=== PATIENT | female | born 1985 | race Caucasian/White ===

== ENCOUNTER 2017-04-24 14:46 | Emergency (ER) | payer MEDICAID ==
[~2017-04-24] VITALS: Ht 160 cm; Wt 73.6 kg
[2017-04-24 15:11] VITALS: BP 113/55
--- NOTE | 2017-04-24 15:57 | NUR ---
AMBULATED TO ER BED 8
[2017-04-24] MEDS ORDERED: KETOROLAC 60 MG/2 ML VIAL IM ONE (16:00)
--- NOTE | 2017-04-24 16:10 | NUR ---
32/F PRESENT TO ER C/O EPIGASTRIC BURNING PAIN RADIATING STRAIGHT BACK X 1 WK-----NAUSEA SOB LIGHTHEADED----DECREASED APPETITE AND THROAT DISCOMFORT. PAIN 6/10 SHARP NON-RADIATING. AAOx4, PERRLA, BREATHING EVEN AND UNLABORED. ERMD NOTIFIED OF PATIENT STATUS.
[2017-04-24] MEDS ORDERED: LORazepam 2 MG/ML VIAL IM ONE (16:15)
--- NOTE | 2017-04-24 16:15 | NUR ---
Patient being evaluated by physician at bedside.
[2017-04-24 17:05] VITALS: BP 121/67
--- NOTE | 2017-04-24 17:05 | NUR ---
Patient discharged with v/s stable. Written and verbal after care instructions given and explained. Patient alert, oriented and verbalized understanding of instructions. Ambulatory with steady gait. All questions addressed prior to discharge. ID band removed. Patient advised to follow up with PMD. Rx of TRAMADOL 50MG TABLET given. Patient educated on indication of medication including possible reaction and side effects. Opportunity to ask questions provided and answered.
== END 2017-04-24 17:05 | disposition home or self-care (01) ==
LOC: MED 14:46
DX: R07.89 Other chest pain (principal)
CPT/HCPCS: 71010; 93005; 96372; 99284; J1885; Q0092

== ENCOUNTER 2017-07-03 07:48 | Emergency (ER) | payer SELFPAY ==
[~2017-07-03] VITALS: Ht 157.5 cm; Wt 73.9 kg
[2017-07-03 07:58] VITALS: BP 98/64
[2017-07-03] MEDS ORDERED: ACET-2869 PO (08:02)
--- NOTE | 2017-07-03 08:05 | NUR ---
32/F BIB MOM C/O NAUSEA AND DIZZY THIS AM. HOT FLASHES AT NIGHT. HX GALLSTONES. AX DENIES. RX NORCO AND IBUPROFEN. DENIES V/D; SKIN IS PINK/WARM/DRY; AAOX4 WITH EVEN AND STEADY GAIT; LUNGS CLEAR BL; HR EVEN AND REGULAR; PT DENIES ANY FEVER, CP, SOB, OR COUGH AT THIS TIME; PATIENT STATES PAIN OF 0/10 AT THIS TIME; VSS; PATIENT POSITIONED FOR COMFORT; HOB ELEVATED; BEDRAILS UP X2; BED DOWN. ER MD MADE AWARE OF PT STATUS.
--- NOTE | 2017-07-03 08:05 | NUR ---
PT AMB TO RESTROOM. UCUP GIVEN.
[2017-07-03] MEDS ORDERED: METOCLOPRAMIDE 10 MG/2 ML INJ VIAL IVP ONE (08:15)
[2017-07-03] MEDS ORDERED: NACL 0.9% 1,000 ML IV ONE (08:15)
[2017-07-03 09:00] LABS: BASOPHILS # (AUTO) 0.2 K/uL (0.00-0.22); BASOPHILS % (AUTO) 2.3 % (0.0-2.0); EOSINOPHILS # (AUTO) 0.1 K/uL (0-0.4); EOSINOPHILS % (AUTO) 0.9 % (0.0-4.0); HEMATOCRIT 42.5 % (36-48); HEMOGLOBIN 14.2 g/dL (12.0-16.0); LYMPHOCYTES # (AUTO) 2.4 K/uL (2.5-16.5); LYMPHOCYTES % (AUTO) 24.4 % (20.5-51.1); MEAN CORPUSCULAR HEMOGLOBIN 30 pg (27-31); MEAN CORPUSCULAR HGB CONC 33 g/dL (33-37); MEAN CORPUSCULAR VOLUME 90 fL (80-94); MONOCYTES # (AUTO) 0.6 K/uL (0.8-1.0); MONOCYTES % (AUTO) 6.3 % (1.7-9.3); NEUTROPHILS # (AUTO) 6.4 K/uL (1.8-7.7); NEUTROPHILS % (AUTO) 66.1 % (42.2-75.2); PLATELET COUNT (AUTO) 196 K/uL (140-450); RED BLOOD CELL COUNT(AUTO) 4.72 MIL/uL (4.20-5.40); RED CELL DISTRIBUTION WIDTH 11.7 % (11.6-13.7); WHITE BLOOD COUNT (AUTO) 9.7 K/uL (4.8-10.8)
[2017-07-03 09:14] LABS: ANION GAP 11.5 (8-16); CARBON DIOXIDE 29.1 mmol/L (21-32); CREATININE 0.8 mg/dL (0.6-1.3); POTASSIUM 3.6 mmol/L (3.5-5.1)
[2017-07-03 09:19] LABS: APPEARANCE,URINE HAZY (CLEAR); BILIRUBIN,URINE NEGATIVE (NEGATIVE); BLOOD, URINE 1+ (NEGATIVE); COLOR,URINE YELLOW (YELLOW); LEUKOCYTE ESTERASE ,URINE NEGATIVE (NEGATIVE); NITRITE, URINE NEGATIVE (NEGATIVE); PH,URINE 5.5 (5.0-9.0); UGLUCOSE NEGATIVE (NEGATIVE)
[2017-07-03 09:21] LABS: ALBUMIN 3.6 g/dL (3.4-5.0); TOTAL BILIRUBIN 0.4 mg/dL (0.0-1.0)
[2017-07-03 09:37] LABS: RBC,URINE 0-5 (RARE) /HPF (0-5); WBC,URINE 0-5 (RARE) /HPF (0-5)
[2017-07-03 09:39] LABS: URINE AMORPHOUS URATE 1+ /HPF (None Seen)
[2017-07-03 09:45] VITALS: BP 101/66
== END 2017-07-03 09:45 | disposition home or self-care (01) ==
LOC: MED 07:48
DX: R11.0 Nausea (principal); R42 Dizziness and giddiness; R51 Headache; Z79.899 Other long term (current) drug therapy
CPT/HCPCS: 36415; 80053; 81001; 81025; 85025; 96361; 96374; 99284; J2765; J7030

== ENCOUNTER 2017-08-16 22:22 | Emergency (ER) | payer SELFPAY ==
[~2017-08-16] VITALS: Ht 157.5 cm; Wt 68.0 kg
[~2017-08-16 22:22] MED LIST: ACET-2869 PO
[2017-08-16 22:37] VITALS: BP 105/67
[2017-08-16 22:49] VITALS: BP 105/67
--- NOTE | 2017-08-16 22:49 | NUR ---
TO LOBBY, AMB,V/S STABLE, A/W FOR BED, NATHANIEL NOTED
--- NOTE | 2017-08-17 02:45 | NUR ---
PATIENT LEFT WITHOUT BEING SEEN BY DR. Lanza. NO FURTHER CARE PROVIDED FOR PATIENT.
== END 2017-08-17 02:45 | disposition left against medical advice (07) ==
LOC: MED 22:22
DX: R10.13 Epigastric pain (principal); Z53.21 Procedure and treatment not carried out due to patient leaving prior to being seen by health care provider

== ENCOUNTER 2017-10-15 10:34 | Emergency (ER) | payer MEDICAID ==
[~2017-10-15] VITALS: Ht 160 cm; Wt 72.6 kg
[2017-10-15 10:36] VITALS: BP 145/102
[2017-10-15] MEDS ORDERED: NACL 0.9% 1,000 ML IV SCH (10:36)
[2017-10-15] MEDS ORDERED: KETOROLAC 30 MG/ML VIAL IVP ONE (10:40)
[2017-10-15] MEDS ORDERED: GLYCOPYRROLATE 0.2 MG/ML VIAL IV ONE (10:40)
[2017-10-15] MEDS ORDERED: HYDROmorphone PFS 2 MG/ML SYR IVP ONE (10:40)
[2017-10-15] MEDS ORDERED: ONDANSETRON 4 MG/2 ML VIAL IVP ONE (10:40)
[2017-10-15 10:56] LABS: BASOPHILS # (AUTO) 0.2 K/uL (0.00-0.22); BASOPHILS % (AUTO) 3.1 % (0.0-2.0); EOSINOPHILS # (AUTO) 0.1 K/uL (0-0.4); EOSINOPHILS % (AUTO) 0.7 % (0.0-4.0); HEMATOCRIT 43.1 % (36-48); HEMOGLOBIN 14.4 g/dL (12.0-16.0); LYMPHOCYTES # (AUTO) 2.1 K/uL (2.5-16.5); LYMPHOCYTES % (AUTO) 26.4 % (20.5-51.1); MEAN CORPUSCULAR HEMOGLOBIN 30 pg (27-31); MEAN CORPUSCULAR HGB CONC 33 g/dL (33-37); MEAN CORPUSCULAR VOLUME 89 fL (80-94); MONOCYTES # (AUTO) 0.5 K/uL (0.8-1.0); MONOCYTES % (AUTO) 6.8 % (1.7-9.3); PLATELET COUNT (AUTO) 207 K/uL (140-450); RED BLOOD CELL COUNT(AUTO) 4.87 MIL/uL (4.20-5.40); RED CELL DISTRIBUTION WIDTH 11.7 % (11.6-13.7); WHITE BLOOD COUNT (AUTO) 7.9 K/uL (4.8-10.8)
[2017-10-15 10:57] LABS: APPEARANCE,URINE CLEAR (CLEAR); BILIRUBIN,URINE NEGATIVE (NEGATIVE); BLOOD, URINE NEGATIVE (NEGATIVE); COLOR,URINE YELLOW (YELLOW); LEUKOCYTE ESTERASE ,URINE TRACE (NEGATIVE); NITRITE, URINE NEGATIVE (NEGATIVE); PH,URINE 6.5 (5.0-9.0); UGLUCOSE NEGATIVE (NEGATIVE)
[2017-10-15 11:06] LABS: ANION GAP 10.6 (8-16); CARBON DIOXIDE 28.9 mmol/L (21-32); CREATININE 0.7 mg/dL (0.6-1.3); POTASSIUM 3.5 mmol/L (3.5-5.1)
[2017-10-15 11:12] LABS: ALBUMIN 3.7 g/dL (3.4-5.0); TOTAL BILIRUBIN 0.6 mg/dL (0.0-1.0)
[2017-10-15 11:14] LABS: RBC,URINE 0-5 (RARE) /HPF (0-5)
[2017-10-15 12:22] VITALS: BP 99/67
== END 2017-10-15 12:22 | disposition home or self-care (01) ==
LOC: MED 10:34
DX: K80.20 Calculus of gallbladder without cholecystitis without obstruction (principal); Z79.899 Other long term (current) drug therapy
CPT/HCPCS: 36415; 76705; 80053; 81001; 81025; 82150; 83690; 84703; 85025; 87086; 96361; 96374; 96375; 99285; J1170; J1885; J2405; J3490; J7030; Q0092

== ENCOUNTER 2018-02-20 15:23 | Inpatient (IN) | payer MEDICAID ==
[~2018-02-20] VITALS: Ht 157.5 cm; Wt 77.6 kg
[2018-02-20 15:43] VITALS: BP 130/75
--- NOTE | 2018-02-20 15:50 | NUR ---
PT AMBULATES TO BED 12
[2018-02-20] MEDS ORDERED: KETOROLAC 30 MG/ML VIAL IVP ONE (15:55)
[2018-02-20] MEDS ORDERED: ONDANSETRON 4 MG/2 ML VIAL IVP ONE (15:55)
[2018-02-20] MEDS ORDERED: HYDROmorphone PFS 2 MG/ML SYR IVP ONE (15:55)
--- NOTE | 2018-02-20 15:55 | NUR ---
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 STATES SHE HAS HX OF GALL BLADDER PROBLEMS BUT INSURANCE WON'T COVER REMOVAL, SKIN IS INTACT, PINK/WARM/DRY; AAOX4, PERRL, WITH EVEN AND STEADY GAIT; LUNGS CLEAR BL, BREATHING UNLABORED; HR EVEN AND REGULAR, BL PERIPHERAL PULSES PRESENT; BS ACTIVE X4, TENDERNESS TO PALPATION, NO HEPATOSPLENOMEGALLY PALPATED, RESONANT TO PERCUSSION; PT DENIES ANY FEVER, CP, SOB, OR COUGH AT THIS TIME; PT STATES 10/10 PAIN AT THIS TIME; VSS; PATIENT POSITIONED FOR COMFORT; HOB ELEVATED; BEDRAILS UP X2; BED DOWN.
--- NOTE | 2018-02-20 15:57 | NUR ---
REPORT GIVEN TO NICKY PATTON
[2018-02-20 16:16] LABS: BASOPHILS % (AUTO) 0.2 % (0.0-2.0); EOSINOPHILS # (AUTO) 0.1 K/uL (0-0.4); HEMATOCRIT 44.6 % (36-48); HEMOGLOBIN 14.6 g/dL (12.0-16.0); LYMPHOCYTES # (AUTO) 2.5 K/uL (2.5-16.5); LYMPHOCYTES % (AUTO) 27.4 % (20.5-51.1); MEAN CORPUSCULAR HEMOGLOBIN 30 pg (27-31); MEAN CORPUSCULAR HGB CONC 33 g/dL (33-37); MEAN CORPUSCULAR VOLUME 90.7 fL (80-94); MONOCYTES # (AUTO) 0.7 K/uL (0.8-1.0); MONOCYTES % (AUTO) 7.3 % (1.7-9.3); NEUTROPHILS # (AUTO) 5.8 K/uL (1.8-7.7); NEUTROPHILS % (AUTO) 64.1 % (42.2-75.2); PLATELET COUNT (AUTO) 234 K/uL (140-450); RED BLOOD CELL COUNT(AUTO) 4.91 MIL/uL (4.20-5.40); RED CELL DISTRIBUTION WIDTH 12.5 % (11.6-13.7); WHITE BLOOD COUNT (AUTO) 9.1 K/uL (4.8-10.8)
--- NOTE | 2018-02-20 16:18 | NUR ---
C/O 05/26 EPIGASTRIC SHARP PAIN WITH NAUSEA---MEDICATED WRITTEN WILL CONTINUE TO OBSERVE FOR NAUSEA AND PAIN CONTROL---- DIET EDUCATED GIVEN TO PT
--- NOTE | 2018-02-20 16:19 | NUR ---
BLOOD COLLECTED AT IV START AND HANDED TO AIRCRAFT DELIVERY CHECKER
[2018-02-20 16:24] LABS: APPEARANCE,URINE CLEAR (CLEAR); BILIRUBIN,URINE NEGATIVE (NEGATIVE); BLOOD, URINE TRACE-I (NEGATIVE); COLOR,URINE YELLOW (YELLOW); LEUKOCYTE ESTERASE ,URINE NEGATIVE (NEGATIVE); NITRITE, URINE NEGATIVE (NEGATIVE); UGLUCOSE NEGATIVE (NEGATIVE)
[2018-02-20 16:27] LABS: CARBON DIOXIDE 30.1 mmol/L (21-32); CREATININE 0.9 mg/dL (0.6-1.3); POTASSIUM 3.1 mmol/L (3.5-5.1)
--- NOTE | 2018-02-20 16:29 | NUR ---
PT ADMITS COMPLETE PAIN RELIEF AT THIS TIME---FAMILY AT BEDSIDE
[2018-02-20 16:34] LABS: ALBUMIN 4.2 g/dL (3.4-5.0); TOTAL BILIRUBIN 0.5 mg/dL (0.0-1.0)
[2018-02-20 16:45] LABS: RBC,URINE 0-5 (RARE) /HPF (0-5); WBC,URINE NONE SEEN /HPF (0-5)
--- NOTE | 2018-02-20 17:00 | NUR ---
ULTRASOUND AT BEDSIDE
[2018-02-20] MEDS ORDERED: NACL 0.9% 1,000 ML IV ONE (17:55)
[2018-02-20] MEDS ORDERED: MORPHINE SULFATE 2 MG/ML SYR IVP PRN (18:25)
[2018-02-20] MEDS ORDERED: ACETAMINOPHEN 325 MG TAB PO PRN (18:25)
[2018-02-20 18:58] LABS: PROTHROMBIN TIME 10.1 secs (10.8-13.4)
[2018-02-20 19:00] VITALS: BP 95/59
--- NOTE | 2018-02-20 19:00 | NUR ---
PT ARRIVED ON UNIT VIA WHEELCHAIR WITH ER NURSE. PT IS A/O X4. AMBULATORY. PT HAS A L AC IV 20G. IV IS PATENT AND INTACT. SKIN IS INTACT. PT HAS NO COMPLAINTS OF PAIN AT THIS TIME. BED LOCKED, LOW POSITION, SIDE RAILS UP. BOARD UPDATED. WILL CONTINUE TO MONITOR PT.
[2018-02-20 19:04] LABS: BARBITURATE, URINE NEG. ng/ml (NEG <=200); BENZODIAZEPINE, URINE NEG. ng/mL (NEG <=200); CANNABINOID, URINE NEG. ng/mL (NEG <=50); COCAINE, URINE NEG. ng/mL (NEG <=300); OPIATE, URINE NEG. ng/mL (NEG <=2000); PHENCYCLIDINE SCREEN,URINE NEG. ng/mL (NEG <=25)
--- NOTE | 2018-02-20 19:04 | NUR ---
Pt transferred to Med/Surg via WHEELCHAIR TO ROOM 111/A, REPORT GIVEN TO DARIO PATTON
[2018-02-20 19:09] LABS: CHOL/HDL RATIO 3.5 (1-4.5); MAGNESIUM 2.2 mg/dL (1.8-2.4); PHOSPHORUS 4.9 mg/dL (2.5-4.9); THYROID STIMULATING HORMONE 0.73 uIU/mL (0.34-3.74)
[2018-02-20] MEDS: POTASSIUM CHLORIDE 10 MEQ TABER PO SCH (20:51)
[2018-02-20] MEDS: NACL 0.9% 1,000 ML IV SCH (20:52)
--- NOTE | 2018-02-20 21:06 | NUR ---
PT RESTING IN BED WITH FAMILY AT BEDSIDE. NO C/O PAIN AT THIS TIME. WILL CONTINUE TO MONITOR PT.
[2018-02-20] MEDS: HYDROcodone/APAP 7.5/325 MG 1 TAB PO PRN (23:09)
--- NOTE | 2018-02-20 23:09 | NUR ---
PT COMPLAINING OF ABDOMINAL PAIN. REQUESTING PAIN MEDICATION. NORCO GIVEN. WILL REEVALUATE FOR EFFECTIVENESS IN ONE HOUR.
--- NOTE | 2018-02-20 23:31 | NUR ---
MD AT BEDSIDE SPEAKING WITH PT ABOUT POSSIBLE ERCP TOMORROW.
[2018-02-20 23:45] VITALS: BP 92/58
--- NOTE | 2018-02-21 00:45 | NUR ---
DR. CARNES SAID OK TO HOLD CONSENT FOR ERCP . HE WILL HAVE BOTH DR. MENDOZA AND DR. JORDAN MADE AWARE ABOUT PT CONCERN EARLY THIS AM.
--- NOTE | 2018-02-21 00:52 | NUR ---
URINE SPECIMEN COLLECTED PER ORDERS.
--- NOTE | 2018-02-21 01:37 | NUR ---
PT SLEEPING IN BED. NO S/SX OF DISTRESS. WILL CONTINUE TO MONITOR.
--- NOTE | 2018-02-21 03:44 | NUR ---
NO CHANGE IN STATUS. PT IN STABLE CONDITION. WILL CONTINUE TO MONITOR.
[2018-02-21] MEDS: NACL 0.9% 1,000 ML IV SCH ×2 (04:21→06:36)
--- NOTE | 2018-02-21 05:30 | NUR ---
PT ASLEEP IN BED. NO SIGNS OF DISTRESS. WILL CONTINUE TO MONITOR.
--- NOTE | 2018-02-21 06:25 | NUR ---
TALKED TO DR. CARNES. HE SAID OK TO HAVE PT SIGN CONSENT FOR ERCP THIS AM. SO TALKED TO PT AGAIN. SHE SIGNED CONSENT . AWARE OF THE PROCEDURE.
[2018-02-21 07:01] LABS: BASOPHILS % (AUTO) 0.2 % (0.0-2.0); EOSINOPHILS # (AUTO) 0.1 K/uL (0-0.4); EOSINOPHILS % (AUTO) 1.4 % (0.0-4.0); HEMATOCRIT 40.2 % (36-48); HEMOGLOBIN 13.5 g/dL (12.0-16.0); LYMPHOCYTES # (AUTO) 2.9 K/uL (2.5-16.5); LYMPHOCYTES % (AUTO) 40.9 % (20.5-51.1); MEAN CORPUSCULAR HEMOGLOBIN 30 pg (27-31); MEAN CORPUSCULAR HGB CONC 34 g/dL (33-37); MEAN CORPUSCULAR VOLUME 90.6 fL (80-94); MONOCYTES # (AUTO) 0.5 K/uL (0.8-1.0); MONOCYTES % (AUTO) 6.8 % (1.7-9.3); NEUTROPHILS # (AUTO) 3.6 K/uL (1.8-7.7); NEUTROPHILS % (AUTO) 50.7 % (42.2-75.2); PLATELET COUNT (AUTO) 210 K/uL (140-450); RED BLOOD CELL COUNT(AUTO) 4.43 MIL/uL (4.20-5.40); RED CELL DISTRIBUTION WIDTH 12.5 % (11.6-13.7); WHITE BLOOD COUNT (AUTO) 7.1 K/uL (4.8-10.8)
--- NOTE | 2018-02-21 07:10 | NUR ---
ENDORSED PT TO DAY SHIFT NURSE FOR CONTINUITY OF CARE. PT IN STABLE CONDITION.
--- NOTE | 2018-02-21 07:15 | NUR ---
DR. MATOS CALLED AND SAD HE IS COMING TO TALK TO THE PT.
[2018-02-21 07:16] LABS: ANION GAP 8.5 (8-16); CARBON DIOXIDE 29.6 mmol/L (21-32); CREATININE 0.8 mg/dL (0.6-1.3); POTASSIUM 4.1 mmol/L (3.5-5.1)
[2018-02-21] MEDS ORDERED: PROPOFOL 200 MG/20 ML VIAL IV ONE (07:25)
--- NOTE | 2018-02-21 07:25 | NUR ---
PATIENT LEFT THE UNIT FOR ERCP
[2018-02-21] MEDS ORDERED: fentaNYL 0.05 MG/ML VIAL ONE (07:27)
[2018-02-21] MEDS ORDERED: MIDAZOLAM 2 MG/2 ML VIAL ONE (07:27)
[2018-02-21] MEDS: LACTATED RINGERS 1,000 ML IV SCH ×2 (07:56→16:16)
[2018-02-21] MEDS ORDERED: ONDANSETRON 4 MG/2 ML VIAL IVP PRN (08:00)
[2018-02-21] MEDS ORDERED: diphenhydrAMINE 50 MG/ML VIAL IVP PRN (08:00)
[2018-02-21] MEDS: MEPERIDINE 25 MG/ML SYR IVP PRN ×3 (08:40→09:00)
[2018-02-21] MEDS ORDERED: MEPERIDINE 25 MG/ML SYR ONE ×3 (08:44→09:04)
[2018-02-21] MEDS: POTASSIUM CHLORIDE 10 MEQ TABER PO SCH ×2 (09:00→20:38)
[2018-02-21 09:25] VITALS: BP 101/67
--- NOTE | 2018-02-21 09:25 | NUR ---
PATIENT BACK IN THE UNIT FROM ERCP. PATIENT AWAKE AND ALERT. NO S/S OF DISTRESS. LR CURRENTLY INFUSING ON THE LEFT AC. BED LOWERED WITH CALL LIGHT WITHIN REACH. WILL CONTINUE TO MONITOR TEMP 97.9 BP: 101/67 HR:75 O2:98% ON ROOM AIR
[2018-02-21] MEDS: MORPHINE SULFATE 2 MG/ML SYR IVP PRN (11:13)
[2018-02-21] MEDS: ONDANSETRON 4 MG/2 ML VIAL IM/IVP PRN (15:04)
--- NOTE | 2018-02-21 15:04 | NUR ---
PATIENT C/O NAUSEA. PRN ZOFRAN ADMINISTERED. WILL CONTINUE TO MONITOR
--- NOTE | 2018-02-21 15:41 | NUR ---
PATIENT ASLEEP IN BED. NO S/S OF DISTRESS NOTED
--- NOTE | 2018-02-21 19:29 | NUR ---
RECEIVED REPORT FROM DAY SHIFT NURSE AT BEDSIDE. PT IN STABLE CONDITION. IV ACCESS IN R HAND, 22G WITH NS AT 100ML/HR. IV IS PATENT. PT IS A/O X4. SKIN INTACT. NO COMPLAINTS OF PAIN AT THIS TIME. BED IN LOW POSITION, LOCKED AND SIDE RAILS ARE UP. BOARD UPDATED. WILL CONTINUE TO MONITOR.
--- NOTE | 2018-02-21 19:29 | NUR ---
PATIENT REPORT GIVEN AT BEDSIDE. PATIENT ENDORSED IN STABLE CONDITION
[2018-02-21 20:04] VITALS: BP 103/69
--- NOTE | 2018-02-21 20:42 | NUR ---
ADMINISTERED EVENING MEDICATION TO PT. PT TOLERATED WELL. PT IS HAVING SOME DISCOMFORT BUT DOES NOT WANT ANY PAIN MEDICINE. ALL NEEDS ARE MET AT THIS TIME. WILL CONTINUE TO MONITOR PT.
--- NOTE | 2018-02-21 21:30 | NUR ---
CONSENT OBTAINED FOR SURGERY AND POSSIBLE BLOOD TRANSFUSION PT IS TO HAVE IN THE MORNING. PLACED IN HARD CHART.
[2018-02-22] VITALS: BP 105/67
--- NOTE | 2018-02-22 | NUR ---
PT VS WITHIN NORMAL LIMITS. PT RESTING COMFORTABLY IN BED. ALL NEEDS ARE MET AT THIS TIME. WILL CONTINUE TO MONITOR.
[2018-02-22] MEDS: NACL 0.9% 1,000 ML IV SCH ×3 (00:21→18:22)
[2018-02-22] MEDS: LACTATED RINGERS 1,000 ML IV SCH (00:36)
--- NOTE | 2018-02-22 02:10 | NUR ---
NEW BAG OF NS STARTED. PT IS SLEEPING IN BED. NO S/SX OF DISTRESS. WILL CONTINUE TO MONITOR.
--- NOTE | 2018-02-22 04:15 | NUR ---
NO CHANGE IN CONDITION. PT ASLEEP WITH NO SIGNS OF DISTRESS. WILL CONTINUE TO MONITOR.
--- NOTE | 2018-02-22 05:52 | NUR ---
PT ASLEEP. NO S/SX OF DISTRESS. NO C/O OF PAIN. WILL CONTINUE TO MONITOR.
--- NOTE | 2018-02-22 07:05 | NUR ---
RECEIVED REPORT FROM WET INSPECTOR OPTICAL GLASS NURSE DARIO AT BEDSIDE FOR CONTINUITY OF CARE. PT IS AWAKE AND ORIENTED X4. INTRODUCED SELF. IV TO R HAND 22G INTACT. PT AMBULATED TO BATHROOM WITH STEADY GAIT. NO SIGNS OF DISTRESS. PT PICKED UP FOR SURGERY BY OR NURSES. PT IN STABLE CONDITION.
--- NOTE | 2018-02-22 07:05 | NUR ---
ENDORSED PT TO DAY SHIFT NURSE FOR CONTINUITY OF CARE AT BEDSIDE. PT IN STABLE CONDITION.
[2018-02-22 07:10] LABS: BASOPHILS % (AUTO) 0.2 % (0.0-2.0); EOSINOPHILS # (AUTO) 0.1 K/uL (0-0.4); EOSINOPHILS % (AUTO) 1.2 % (0.0-4.0); HEMATOCRIT 39.1 % (36-48); HEMOGLOBIN 13.2 g/dL (12.0-16.0); LYMPHOCYTES # (AUTO) 2.8 K/uL (2.5-16.5); LYMPHOCYTES % (AUTO) 34.5 % (20.5-51.1); MEAN CORPUSCULAR HEMOGLOBIN 31 pg (27-31); MEAN CORPUSCULAR HGB CONC 34 g/dL (33-37); MEAN CORPUSCULAR VOLUME 90.8 fL (80-94); MONOCYTES # (AUTO) 0.5 K/uL (0.8-1.0); MONOCYTES % (AUTO) 6.6 % (1.7-9.3); NEUTROPHILS # (AUTO) 4.7 K/uL (1.8-7.7); NEUTROPHILS % (AUTO) 57.5 % (42.2-75.2); PLATELET COUNT (AUTO) 197 K/uL (140-450); RED BLOOD CELL COUNT(AUTO) 4.31 MIL/uL (4.20-5.40); RED CELL DISTRIBUTION WIDTH 12.7 % (11.6-13.7); WHITE BLOOD COUNT (AUTO) 8.1 K/uL (4.8-10.8)
[2018-02-22] MEDS ORDERED: BUPIVACAINE-MPF 0.25% 30 ML VIAL INJ ONE (07:14)
[2018-02-22] MEDS ORDERED: KETOROLAC 30 MG/ML VIAL ONE (07:21)
[2018-02-22] MEDS ORDERED: DEXAMETHASONE 4 MG/ML VIAL ONE (07:21)
[2018-02-22] MEDS ORDERED: GLYCOPYRROLATE 0.2 MG/ML VIAL ONE (07:21)
[2018-02-22] MEDS ORDERED: LIDOCAINE 2% 100 MG/5 ML SYR IVP ONE (07:21)
[2018-02-22] MEDS ORDERED: PROPOFOL 200 MG/20 ML VIAL IV ONE (07:21)
[2018-02-22] MEDS ORDERED: PHENYLEPHRINE 10 MG/ML VIAL ONE (07:21)
[2018-02-22] MEDS ORDERED: SUCCINYLCHOLINE CHLORIDE 200 MG/10 ML VIAL IVP ONE (07:21)
[2018-02-22] MEDS ORDERED: DESFLURANE 240 ML BTL INH ONE (07:21)
[2018-02-22] MEDS ORDERED: ROCURONIUM 50 MG/5 ML VIAL IV ONE (07:21)
[2018-02-22] MEDS ORDERED: ONDANSETRON 4 MG/2 ML VIAL ONE (07:21)
[2018-02-22] MEDS ORDERED: ceFAZolin 1,000 MG VIAL ONE (07:33)
[2018-02-22] MEDS ORDERED: MIDAZOLAM 2 MG/2 ML VIAL ONE (07:37)
[2018-02-22] MEDS ORDERED: fentaNYL 0.05 MG/ML VIAL ONE (07:38)
[2018-02-22 07:57] LABS: ALBUMIN 3.2 g/dL (3.4-5.0); ANION GAP 8.1 (8-16); CARBON DIOXIDE 30.2 mmol/L (21-32); CREATININE 0.7 mg/dL (0.6-1.3); POTASSIUM 4.3 mmol/L (3.5-5.1); TOTAL BILIRUBIN 0.8 mg/dL (0.0-1.0)
[2018-02-22 08:00] VITALS: BP 118/71
[2018-02-22] MEDS ORDERED: ONDANSETRON 4 MG/2 ML VIAL IVP PRN (08:00)
[2018-02-22 08:19] LABS: MAGNESIUM 1.6 mg/dL (1.8-2.4); PHOSPHORUS 2.9 mg/dL (2.5-4.9)
[2018-02-22] MEDS ORDERED: THROMBIN KIT 20 MU VIAL TP ONE (08:39)
[2018-02-22] MEDS ORDERED: DEXT 5% / NACL 0.45% 1,000 ML IV SCH (09:10)
[2018-02-22] MEDS: HYDROmorphone 1 MG/ML AMP IVP PRN ×4 (09:18→09:48)
[2018-02-22] MEDS ORDERED: HYDROmorphone PFS 2 MG/ML SYR ONE (09:23)
--- NOTE | 2018-02-22 10:05 | NUR ---
PT ARRIVE TO UNIT FROM OR. BEDSIDE REPORT GIVEN BY MOISES PATTON. PT IS AWAKE AND ORIENTED X4. INTRODUCED SELF AND UPDATED BOARD. PT WITH 4 ABD INCISIONS. DURAPREP. NO DRAINAGE. PT ON CLEAR LIQUID DIET. EDUCATED ON DIET AND PAIN MANAGEMENT. VERBALIZED UNDERSTANDING. VS: TEMP 98.1, O2 SAT 96% ON RA, HR 77, BP 112/54, RR 20. CALL LIGHT WITHIN REACH. WILL CONTINUE TO MONITOR.
--- NOTE | 2018-02-22 10:21 | NUR ---
PATIENT HAS BEEN SCREENED AND CATEGORIZED MODERATE NUTRITION RISK. PATIENT WILL BE SEEN WITHIN 3-5 DAYS OF ADMISSION. 02/23/18 02/25/[address]
[2018-02-22] MEDS: MORPHINE SULFATE 2 MG/ML SYR IVP PRN (10:28)
--- NOTE | 2018-02-22 10:40 | NUR ---
REPORTED TO DR. ROBERTO PT BACK FROM OR AND MAG 1.6. WILL WAIT FOR ORDERS.
[2018-02-22] MEDS: ONDANSETRON 4 MG/2 ML VIAL IM/IVP PRN (12:10)
--- NOTE | 2018-02-22 12:10 | NUR ---
PT WAS COMPLAINING OF FEELING NAUSEOUS. ADMINISTERED ZOFRAN IVP. PT TOLERATED WELL. GAVE AND INSTRUCTED PT HOW TO USE INCENTIVE SPIROMETER. PT DEMONSTRATED TEACHING WELL. PT AMBULATED TO BATHROOM. WALKED WITH STEADY GAIT. NO SIGNS OF DISTRESS. PT ON CLEAR LIQUID DIET. CALL LIGHT WITHIN REACH. WILL CONTINUE TO MONITOR.
--- NOTE | 2018-02-22 15:54 | NUR ---
CHECKED ON PT IN ROOM. PT DENIES PAIN AT THIS TIME. NO PAIN MED REQUESTED. PT AMBULATED TO RESTROOM WITH STEADY GAIT. NO SIGNS OF DISTRESS. SITTING UP IN BED WATCHING TV AND ON PHONE. CALL LIGHT WITHIN REACH. WILL CONTINUE TO MONITOR.
[2018-02-22 16:00] VITALS: BP 103/65
[2018-02-22] MEDS: HYDROcodone/APAP 7.5/325 MG 1 TAB PO PRN ×2 (18:22→22:36)
--- NOTE | 2018-02-22 19:26 | NUR ---
ENDORSED PT TO WAITER/WAITRESS COUNTER NURSE ENDY AT BEDSIDE FOR CONTINUITY OF CARE, PT IN STABLE CONDITION.
--- NOTE | 2018-02-22 19:27 | NUR ---
RECEIVED BEDSIDE REPORT FROM DAY SHIFT NURSE LIDYA RN, PT STABLE, NO DISTRESS NOTED, IV TO R HAND 22G RUNNING NS @ 100ML/HR, PT ON ROOM AIR, NO SOB, PT STATED PAIN IS TOLERABLE AT THIS MOMENT, 4X INCISION SITE ON THE ABDOMEN INTACT WITH DURAPREP, PT RESTING, CALL LIGHT WITHIN REACH, INITIAL ASSESSMENT DONE, ALL SAFETY PRECAUTION MET, WILL CONTINUE TO MONITOR.
[2018-02-22] MEDS ORDERED: MAG SULF 2000 MG/WATER PREMIX 100 ML IV SCH (19:45)
--- NOTE | 2018-02-22 19:45 | NUR ---
TALKED TO DR. RODRIGUEZ REGARDING PT MAGNESIUM 1.6 AND NO MAGNESIUM REPLENISHMENT HAS BEEN ORDERED, STATED UNDERSTANDING AND WILL ORDER MEDICATION.
[2018-02-22] MEDS ORDERED: MAG SULF 2000 MG/WATER PREMIX 50 ML IV SCH ×2 (21:00→22:00)
--- NOTE | 2018-02-22 21:50 | NUR ---
MAGNESIUM SULFATE 2G ORDERED, BUT WAS NOT AVAILABLE IN THE UNIT, CALLED PROCESSES CHEMICAL DESIGN ENGINEER MIGUEL, PROCESSES CHEMICAL DESIGN ENGINEER BROUGHT 1G BAGS PREMIXED, CALLED PHARMACY REGARDING ORDER, PHARMACY IS UNABLE TO CHANGE, TALKED TO DR REGARDING ORDER, STATED WAS NOT ABLE TO ORDER 1G BAG BECAUSE IT IS NOT IN THE SYSTEM, PHARMACY TALKED TO DR. RODRIGUEZ TO CHANGE ORDER TO MAG OXIDE INSTEAD. WILL PUT IN ORDERS
[2018-02-22] MEDS ORDERED: MAGNESIUM OXIDE 400 MG TAB PO SCH (22:30)
--- NOTE | 2018-02-22 22:36 | NUR ---
DUE MEDICATION ADMINISTERED, PT TOLERATED WELL, PT STATED FEELING PAIN ON THE ABD 6/10. PAIN MEDICATION ORDERED ADMINISTERED, PT TOLERATED WELL, NO DISTRESS NOTED, CALL LIGHT WITHIN REACH, WILL CONTINUE TO MONITOR.
[2018-02-23] VITALS: BP 104/66
--- NOTE | 2018-02-23 00:10 | NUR ---
PT AMBULATED TO RESTROOM AND BACK TO BED, NO DISTRESS NOTED, V/S TAKEN, WNL. PT RESTING, CALL LIGHT WITHIN REACH, WILL CONTINUE TO MONITOR.
--- NOTE | 2018-02-23 02:30 | NUR ---
PT SLEEPING, NO DISTRESS NOTED, CALL LIGHT WITHIN REACH, WILL CONTINUE TO MONITOR.
--- NOTE | 2018-02-23 04:11 | NUR ---
CHECKED ON PT, PT RESTING NO DISTRESS NOTED, CALL LIGHT WITHIN REACH, WILL CONTINUE TO MONITOR.
[2018-02-23] MEDS: NACL 0.9% 1,000 ML IV SCH (04:18)
[2018-02-23 06:21] LABS: T4 (THYROXINE) 9.5 ug/dL (4.5-12.0)
[2018-02-23] MEDS ORDERED: ACET-9529 PO (06:55)
[2018-02-23] MEDS ORDERED: DOCU-299 PO (06:55)
--- NOTE | 2018-02-23 07:14 | NUR ---
ENDORSED PATIENT TO DAY SHIFT NURSE LIDYA PATTON, PT STABLE, NO DISTRESS NOTED, CALL LIGHT WITHIN REACH.
--- NOTE | 2018-02-23 07:15 | NUR ---
RECEIVED REPORT FROM MINT WAFER DEPOSITOR NURSE ENDY AT BEDSIDE FOR CONTINUITY OF CARE. PT IS AWAKE AND ORIENTED X4. INTRODUCED SELF AND UPDATED BOARD. PT DENIES ABD PAIN. STATED SHE JUST FEELS A LITTLE SORE. NO PAIN MED REQUESTED. SKIN WARM AND DRY. WITH ABD INCISIONS DURAPREP. IV TO R HAND 22G INTACT WITH NS@50ML/HR. NO SIGNS OF DISTRESS. CALL LIGHT WITHIN REACH. WILL CONTINUE TO MONITOR.
[2018-02-23 07:16] LABS: BASOPHILS % (AUTO) 0.1 % (0.0-2.0); EOSINOPHILS % (AUTO) 0.1 % (0.0-4.0); HEMATOCRIT 36.4 % (36-48); HEMOGLOBIN 12.3 g/dL (12.0-16.0); LYMPHOCYTES # (AUTO) 2.7 K/uL (2.5-16.5); MEAN CORPUSCULAR HEMOGLOBIN 30 pg (27-31); MEAN CORPUSCULAR HGB CONC 34 g/dL (33-37); MEAN CORPUSCULAR VOLUME 90.2 fL (80-94); MONOCYTES # (AUTO) 0.9 K/uL (0.8-1.0); MONOCYTES % (AUTO) 8.4 % (1.7-9.3); NEUTROPHILS # (AUTO) 6.7 K/uL (1.8-7.7); NEUTROPHILS % (AUTO) 65.4 % (42.2-75.2); PLATELET COUNT (AUTO) 190 K/uL (140-450); RED BLOOD CELL COUNT(AUTO) 4.04 MIL/uL (4.20-5.40); RED CELL DISTRIBUTION WIDTH 12.5 % (11.6-13.7); WHITE BLOOD COUNT (AUTO) 10.3 K/uL (4.8-10.8)
[2018-02-23 07:34] LABS: ANION GAP 12.4 (8-16); CARBON DIOXIDE 26.6 mmol/L (21-32); CREATININE 0.7 mg/dL (0.6-1.3); TOTAL BILIRUBIN 0.6 mg/dL (0.0-1.0)
[2018-02-23 07:54] VITALS: BP 99/68
--- NOTE | 2018-02-23 11:49 | NUR ---
GAVE D/C FORMS, INSTRUCTIONS, RX, LABS, AND FOLLOW UP APPOINTMENT. PT VERBALIZED UNDERSTANDING AND SIGNED FORMS. REMOVED IV TO R HAND 22G. IV CATHETER TIP INTACT. APPLIED PRESSURE AND DRESSING TO SITE. NO BLEEDING NOTED. PT WENT TO TAKE SHOWER. WILL CONTINUE TO MONITOR.
--- NOTE | 2018-02-23 12:45 | NUR ---
PT D/C TO GO HOME. LEFT WITH ALL PERSONAL BELONGINGS, FORMS AND RX. REMOVED ID BAND. LEFT UNIT VIA WHEELCHAIR ACCOMPANIED BY SISTER. PT LEFT IN STABLE CONDITION.
== END 2018-02-23 12:45 | disposition home or self-care (01) | DRG 263 ==
LOC: MED 15:23 → MTU 18:21
PROVIDERS: ADMIT General Practice; ATTEND General Practice
PROC: 0F798ZZ Dilation of Common Bile Duct, Via Natural or Artificial Opening Endoscopic (ICD-10-PCS; 2018-02-21)
PROC: 0F7D8ZZ Dilation of Pancreatic Duct, Via Natural or Artificial Opening Endoscopic (ICD-10-PCS; 2018-02-21)
PROC: 0F788ZZ Dilation of Cystic Duct, Via Natural or Artificial Opening Endoscopic (ICD-10-PCS; 2018-02-21)
PROC: 0FT44ZZ Resection of Gallbladder, Percutaneous Endoscopic Approach (ICD-10-PCS; principal; 2018-02-22 07:30)
DX: K80.70 Calculus of gallbladder and bile duct without cholecystitis without obstruction (principal); N17.0 Acute kidney failure with tubular necrosis; E44.0 Moderate protein-calorie malnutrition; K85.90 Acute pancreatitis without necrosis or infection, unspecified; E87.6 Hypokalemia; K29.80 Duodenitis without bleeding; E83.51 Hypocalcemia; E83.42 Hypomagnesemia; E86.0 Dehydration; K76.0 Fatty (change of) liver, not elsewhere classified; E78.5 Hyperlipidemia, unspecified; R74.0 Nonspecific elevation of levels of transaminase and lactic acid dehydrogenase [LDH]; R31.9 Hematuria, unspecified
CPT/HCPCS: 36415; 71045; 74330; 76705; 77003; 80048; 80053; 80305; 81001; 81025; 82150; 83036; 83690; 83735; 84100; 84436; 84443; 84479; 85025; 85610; 85730; 86886; 86900; 86901; 87081; 93005; 96361; 96374; 96375; 99285; C1769; J0330; J0690; J1100; J1170; J1885; J2001; J2175; J2250; J2270; J2370; J2405; J2704; J3010; J3490; J7030; Q0092

== ENCOUNTER 2018-03-07 02:10 | Emergency (ER) | payer MEDICAID ==
[~2018-03-07] VITALS: Ht 157.5 cm; Wt 72.7 kg
[2018-03-07 02:10] VITALS: BP 129/65
[~2018-03-07 02:10] MED LIST changes: -ACET-2869 PO; +ACET-9529 PO; +DOCU-299 PO
--- NOTE | 2018-03-07 02:15 | NUR ---
PATIENT AMBULATED TO ER BED 12.
--- NOTE | 2018-03-07 02:20 | NUR ---
PATIENT IS A 32 Y/O FEMALE WHO PRESENTS TO THE ED C/O RIB PAIN. PT STATES THAT SHE GOT GALLBLADDER SURGERY AND IS CURRENTLY HURTS TO MOVE. PT REPORTS 7/10 SHARP R RIB PAIN THAT DOES NOT RADIATE. NO OBVIOUS TRAUMA OR DEFORMITY. PT DENIES CP, SOB, N/V/D. PT AWAKE AND ALERT, RR EVEN/UNLABORED. PT REPOSITIONED FOR COMFORT, BED IN LOWEST POSITION. ER MD DR. PEREZ NOTIFIED. WILL CONTINUE TO MONITOR.
[2018-03-07] MEDS ORDERED: KETOROLAC 30 MG/ML VIAL IM ONE (02:25)
--- NOTE | 2018-03-07 03:20 | NUR ---
PATIENT TAKEN TO XRAY WITH TECH VIA WHEELCHAIR.
--- NOTE | 2018-03-07 03:33 | NUR ---
PATIENT RETURN FROM XRAY.
[2018-03-07 03:41] LABS: ALBUMIN 3.3 g/dL (3.4-5.0); ANION GAP 7.6 (8-16); CARBON DIOXIDE 27.6 mmol/L (21-32); CREATININE 0.9 mg/dL (0.6-1.3); POTASSIUM 4.2 mmol/L (3.5-5.1); TOTAL BILIRUBIN 0.3 mg/dL (0.0-1.0)
[2018-03-07 03:53] VITALS: BP 119/72
--- NOTE | 2018-03-07 03:53 | NUR ---
Patient discharged with v/s stable. Written and verbal after care instructions given and explained. Patient alert, oriented and verbalized understanding of instructions. Ambulatory with steady gait. All questions addressed prior to discharge. ID band removed. Patient advised to follow up with PMD. Rx of MIRALAX POWDER AND MINERAL OIL given. Patient educated on indication of medication including possible reaction and side effects. Opportunity to ask questions provided and answered.
== END 2018-03-07 03:53 | disposition home or self-care (01) ==
LOC: MED 02:10
DX: K59.00 Constipation, unspecified (principal); R03.0 Elevated blood-pressure reading, without diagnosis of hypertension; Z90.49 Acquired absence of other specified parts of digestive tract; Z79.899 Other long term (current) drug therapy
CPT/HCPCS: 36415; 74022; 80053; 81002; 81025; 96372; 99285; J1885

== ENCOUNTER 2022-04-29 12:25 | Emergency (ER) | payer MEDICAID ==
[~2022-04-29] VITALS: Ht 157.5 cm; Wt 81.6 kg
[2022-04-29 12:38] VITALS: BP 106/68
--- NOTE | 2022-04-29 13:11 | NUR ---
37 Y/O FEMALE BIB SELF C/O SORE THROAT X1 DAY, DENIES COUGH, SOB, NOTED REDNESS AND SWELLING ON THE TONSILS NKA PMH: DENIES
--- NOTE | 2022-04-29 14:05 | NUR ---
DR HERNANDEZ AT PT SIDE FOR EVAL
[2022-04-29] MEDS ORDERED: AMOX-1230 PO (14:12)
--- NOTE | 2022-04-29 14:15 | NUR ---
SWABS HANDED TO JOSÉ RECEPTIONIST/TELEPHONE OPERATOR
[2022-04-29 14:19] VITALS: BP 106/68
--- NOTE | 2022-04-29 14:19 | NUR ---
Patient discharged with v/s stable. Written and verbal after care instructions ABOUT PHARYNGITIS given and explained. Patient alert, oriented and verbalized understanding of instructions. Ambulatory with steady gait. All questions addressed prior to discharge. ID band removed. Patient advised to follow up with PMD. Rx of AMOXCLAV given. Patient educated on indication of medication including possible reaction and side effects. Opportunity to ask questions provided and answered.
== END 2022-04-29 14:19 | disposition home or self-care (01) ==
LOC: MED 12:25
DX: J02.9 Acute pharyngitis, unspecified (principal); Z20.822 Contact with and (suspected) exposure to COVID-19; Z90.49 Acquired absence of other specified parts of digestive tract
CPT/HCPCS: 87081; 99283

== ENCOUNTER 2022-07-13 10:52 | Emergency (ER) | payer OTHER, MEDICAID ==
[~2022-07-13] VITALS: Ht 157.5 cm; Wt 81.6 kg
[~2022-07-13 10:52] MED LIST changes: +AMOX-1230 PO
[2022-07-13 11:28] VITALS: BP 118/74
--- NOTE | 2022-07-13 11:31 | NUR ---
37/F WALKED IN C/O COUGH CONGESTION AND FEVER. PT STATES TESTING NEGATIVE FOR COVID YESTERDAY. AAO4, AMBULATORY, AFEBRILE AT TRIAGE. PMH: DENIES
[2022-07-13] MEDS ORDERED: PROM118S5 PO (13:27)
[2022-07-13] MEDS ORDERED: IBUP-2213 PO (13:27)
== END 2022-07-13 14:15 | disposition home or self-care (01) ==
LOC: MED 10:52
DX: J06.9 Acute upper respiratory infection, unspecified (principal); Z79.899 Other long term (current) drug therapy; Z79.1 Long term (current) use of non-steroidal anti-inflammatories (NSAID); Z79.2 Long term (current) use of antibiotics; Z79.891 Long term (current) use of opiate analgesic
CPT/HCPCS: 99283

== ENCOUNTER 2023-04-16 17:46 | Emergency (ER) | payer MEDICAID, OTHER ==
[~2023-04-16] VITALS: Ht 157.5 cm; Wt 81.6 kg
[~2023-04-16 17:46] MED LIST changes: +IBUP-2213 PO; +PROM118S5 PO
[2023-04-16 17:59] VITALS: BP 106/56; PULSE 75; RESP 20; TEMP 98.6; O2SAT 98
[2023-04-16] MEDS ORDERED: FLUORESCEIN OPTH STRIP 1 MG OP ONE (18:00)
[2023-04-16] MEDS ORDERED: TETRACAINE HCL/PF 0.5% OPTH 4 ML BTL OP ONE (18:00)
[2023-04-16] MEDS ORDERED: VIGOS OP (18:22)
[2023-04-16 18:28] VITALS: BP 106/56; PULSE 75; RESP 20; TEMP 98.6; O2SAT 98
== END 2023-04-16 18:28 | disposition home or self-care (01) ==
LOC: MED 17:46
DX: H57.13 Ocular pain, bilateral (principal); Z79.899 Other long term (current) drug therapy
CPT/HCPCS: 99283

== ENCOUNTER 2023-09-08 11:05 | Emergency (ER) | payer MEDICAID ==
[~2023-09-08] VITALS: Ht 157.5 cm; Wt 83.9 kg
[~2023-09-08 11:05] MED LIST changes: +VIGOS OP
[2023-09-08 11:34] VITALS: BP 118/72; PULSE 81; RESP 18; TEMP 98.1; O2SAT 100
[2023-09-08 11:54] LABS: BASOPHILS % (AUTO) 0.2 % (0.0-2.0); EOSINOPHILS # (AUTO) 0.1 K/uL (0-0.4); EOSINOPHILS % (AUTO) 1.3 % (0.0-4.0); LYMPHOCYTES # (AUTO) 2.3 K/uL (2.5-16.5); LYMPHOCYTES % (AUTO) 31.3 % (20.5-51.1); MEAN CORPUSCULAR HEMOGLOBIN 31 pg (27-31); MEAN CORPUSCULAR HGB CONC 35 g/dL (33-37); MEAN CORPUSCULAR VOLUME 88.9 fL (80-94); MONOCYTES # (AUTO) 0.5 K/uL (0.8-1.0); NEUTROPHILS # (AUTO) 4.4 K/uL (1.8-7.7); NEUTROPHILS % (AUTO) 60.2 % (42.2-75.2); PLATELET COUNT (AUTO) 231 K/uL (140-450); RED BLOOD CELL COUNT(AUTO) 4.83 MIL/uL (4.20-5.40); RED CELL DISTRIBUTION WIDTH 12.8 % (11.6-13.7); WHITE BLOOD COUNT (AUTO) 7.3 K/uL (4.8-10.8)
[2023-09-08 12:09] LABS: ANION GAP 10.6 (8-16); CALCIUM 8.9 mg/dL (8.5-10.1); CARBON DIOXIDE 27.9 mmol/L (21-32); CREATININE 0.8 mg/dL (0.6-1.3); POTASSIUM 3.5 mmol/L (3.5-5.1)
[2023-09-08 12:15] LABS: ALBUMIN 3.4 g/dL (3.4-5.0); BILIRUBIN,DIRECT 0.1 mg/dL (0.0-0.3); TOTAL BILIRUBIN 0.5 mg/dL (0.0-1.0); TOTAL PROTEIN, SERUM 8.6 g/dL (6.4-8.2)
[2023-09-08] MEDS ORDERED: IBUP-2218 PO (13:50)
== END 2023-09-08 13:56 | disposition home or self-care (01) ==
LOC: MED 11:05
DX: N94.6 Dysmenorrhea, unspecified (principal); R10.2 Pelvic and perineal pain; Z98.890 Other specified postprocedural states; Z79.899 Other long term (current) drug therapy; Z79.1 Long term (current) use of non-steroidal anti-inflammatories (NSAID); Z79.2 Long term (current) use of antibiotics
CPT/HCPCS: 36415; 76856; 80048; 80076; 81025; 83690; 85025; 99284